=== PATIENT | female | born 1960 | race Caucasian/White ===

== ENCOUNTER → 2023-09-20 09:11 | Outpatient (BNVA) | payer MEDICARE, OTHER, SELFPAY | PROVIDERS: Visit Provider Physician Assistant Surgical ==

== ENCOUNTER 2023-11-20 08:06 | Outpatient (AMB) | payer OTHER, MEDICARE, SELFPAY ==
--- NOTE | 2023-11-20 09:53 | MHC.OFFVISWM ---
Intake Visit Reasons: TV Re-Est SWL BMI 43.5 *SEE COMMENTS* Allergies codeine Allergy (Mild, Verified 11/20/23 09:53) HIVES lisinopril Allergy (Mild, Verified 11/20/23 09:53) Hives Penicillins Allergy (Mild, Verified 11/20/23 09:53) Hives TOPICAL IODINE Allergy (Mild, Uncoded 11/20/23 09:53) Hives Medication List - Last Reconciled 11/20/23 by Rosalino Mendoza MD albuterol 90 mcg/actuation mcg inhalation cyanocobalamin (vitamin B-12) 1,000 mcg sublingual DAILY cyclobenzaprine 10 mg PO BEDTIME doxycycline hyclate 50 mg PO DAILY levothyroxine 50 mcg PO DAILY losartan-hydrochlorothiazide 100-25 mg 1 tab PO DAILY metformin ER 500 mg PO DAILY naproxen 500 mg PO BID semaglutide (Ozempic) 1 mg subcut QWEEK HPI HPI TV Re-Est SWL BMI 43.5 *SEE COMMENTS*: Details: Start time: 9.42am, End time: 10.27am ?I spent 40 minutes speaking with the patient on the phone plus an additional 5 minutes reviewing and updating records for a total of 45 minutes HPI Comments Details: Previous weight loss efforts: [employer], 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, OA, RD Wakes up: 7am, Sleeps: 10pm Breakfast: 8am (oatmeal) Lunch: 12.30pm (salad with eggs) Dinner: 6.30pm (chicken with kale, potatoes, rice and beans) Snacks: (nuts or fruit) x2 Exercise: has a home treadmill, rowing machine and bike Fluids: coffee: occasionally, hot/iced tea: 6 cups per day (creamer and milk), soda: none, juice: none, ETOH: none PFSH Medical History (Updated 04/06/22 @ 08:38 by Rosalino Mendoza MD) Migraines Insomnia Hypothyroidism Sleep apnea with use of continuous positive airway pressure (CPAP) Asthma Anxiety Depression DJD (degenerative joint disease) GERD (gastroesophageal reflux disease) Non-insulin dependent diabetes mellitus Hypertension Morbid obesity Surgical History (Updated 04/04/22 @ 10:00 by NOVA Tucker) History of wisdom tooth extraction Hx of rotator cuff surgery Hx of knee surgery History of bunionectomy Hx of endoscopy Hx of colonoscopy Family History (Updated 04/04/22 @ 10:02 by NOVA Tucker) Mother Diabetes Breast cancer Thyroid condition Diverticulitis Father Hypertension Brother Acute Crohn's disease Brother No problems noted. Sister Thyroid condition Social History (Updated 04/04/22 @ 09:56 by NOVA Tucker) Alcohol intake: current Alcohol intake frequency: holidays/special occasions only Patient Tobacco Use Status: Never used Tobacco Telehealth Telehealth Telehealth Platform: Telephone Location of provider rendering services: practice address Location of patient: address on file Patient Identification confirmed using: Name, : Yes Telehealth method: voice only Patient verbally consented to treatment: Yes Patient verbally consented to billing insurance company: Yes Patient informed of any privacy concerns related to visit: Yes Minutes spent on Phone/Video with Pt.: 45 Assessment & Plan Assessment & Plan (1) Morbid obesity: Code(s): E66.01 - Morbid (severe) obesity due to excess calories Category: Medical Plan: 1.? Plan for lap sleeve gastrectomy. If diaphragmatic or ventral hernias are present at time of surgery, these will be repaired laparoscopically as well. Risks and complications include possible conversion to an open procedure, anastomotic leak, bleeding requiring transfusion, small bowel obstruction, , DVT and pulmonary embolism, cardiac, or pulmonary complications, as [facility] complications such as anastomotic ulcer, insufficient weight loss and vitamin deficiencies. I emphasized the importance of close follow-up, adherence to instructions and good communication. 2. You will receive a link of our software mar to generate an individualized nutritional and exercise plan specific for you. Please send me a screenshot of the plans you will generate Meal to include lean meat (beef, fish, pork, turkey, chicken), or lithuanian yogurt, or egg whites, or beans with a salad with olive oil and fruits (berries, pears, apples, kiwi). Avoid salt, breads, potatoes, rice, pasta, desserts. ?3. If you choose shakes, each shake would be drunk slowly, like coffee in a period of 2 hours. ?4. If you choose bars, cut each bar in 4 pieces and eat each piece in 30min ?to make each bar last 2 hours. ?5. I emphasized the importance of measuring accurately the food portion and measure it when serving the food in plate ?6. The meal portions include a specific number of forks of meat and salad. You always eat the meat portion but you can replace up to half of salad/vegetables portion with rice, potatoes or pasta, or a fruit ?if you like. The less you do it the better weight loss will be. ?7. One full-size fork is what it can be scooped on the fork without falling aside and not what can be bit with the fork. Use regular forks like those you find in a typical restaurant. ?8.? Please send me weight measurements as soon as possible and then once a week. Always include your diet and exercise plan. 9. The best choice would be to purchase a stationary bike, elliptical or treadmill at home that can track calories. Let me know if you do so I can give you an exercise plan. ?10.?It is important of avoiding and for at least 18 months postoperatively and has been discussed at the infosession. ?11. Goal is to lose at least 1.5-2lbs per week ?12. Goal to lose 10% of your weight before surgery, which is about 24lbs. Ultimate weight goal: 213lbs before surgery 13. Please follow the diet plan exactly without any change. If you don't like something about the plan or you feel hungry you need to communicate with me so I can help you revise the plan. You should not change the plan yourself. 14. To be scheduled for EGD due to history of GERD. The possibility of biopsies was discussed. Patient needs to avoid use of NSAIDs and aspirin for 1 week prior to EGD. Risks of perforation and bleeding was discussed with the patient. This will be an outpatient procedure with IV sedation. Orders: Orders Hemoglobin A1c Today E66.01 - Morbid (severe) obesity due to excess calories H Pylori Breath Test Today E66.01 - Morbid (severe) obesity due to excess calories Complete Blood Count Auto Diff Today E66.01 - Morbid (severe) obesity due to excess calories IRON PROFILE Today E66.01 - Morbid (severe) obesity due to excess calories Comprehensive Met. Panel Today E66.01 - Morbid (severe) obesity due to excess calories Vitamin B12 and Folate Today E66.01 - Morbid (severe) obesity due to excess calories Zinc Today E66.01 - Morbid (severe) obesity due to excess calories C Reactive Protein Today E66.01 - Morbid (severe) obesity due to excess calories Vitamin A Today E66.01 - Morbid (severe) obesity due to excess calories TSH reflex Free T4 Today E66.01 - Morbid (severe) obesity due to excess calories Vitamin D 25-OH Total Today E66.01 - Morbid (severe) obesity due to excess calories US abdomen comp w elastography Today E66.01 - Morbid (severe) obesity due to excess calories XR chest 2V Today E66.01 - Morbid (severe) obesity due to excess calories ECG 12 lead EKG Today E66.01 - Morbid (severe) obesity due to excess calories Insulin Today E66.01 - Morbid (severe) obesity due to excess calories Lipid Panel Today E66.01 - Morbid (severe) obesity due to excess calories Vitamin B1 Today E66.01 - Morbid (severe) obesity due to excess calories Ferritin Today E66.01 - Morbid (severe) obesity due to excess calories FL upper GI w air Today E66.01 - Morbid (severe) obesity due to excess calories Referrals Behavioral Health Referral E66.01 - Morbid (severe) obesity due to excess calories Nutrition/Dietitian Referral E66.01 - Morbid (severe) obesity due to excess calories
== END 2023-11-20 10:28 | disposition home or self-care (01) ==
LOC: HO.HBS 08:06
PROVIDERS: Visit Provider Surgery
DX: E66.01 Morbid (severe) obesity due to excess calories (principal); Z68.41 Body mass index [BMI] 40.0-44.9, adult
CPT/HCPCS: 99443

== ENCOUNTER → 2023-11-20 08:06 | Outpatient (BNVA) | payer MEDICARE, OTHER, SELFPAY | PROVIDERS: Visit Provider Surgery ==

== ENCOUNTER 2023-12-20 09:36 | Outpatient (REF) | payer OTHER, MEDICARE, SELFPAY ==
--- NOTE | ~2023-12-20 | US_ITS ---
EXAMINATION: US COMPLETE ABDOMEN WITH LIVER ELASTOGRAPHY CLINICAL INFORMATION: Obesity. COMPARISON: None available. TECHNIQUE: Real-time imaging of the abdominal viscera. Noninvasive ultrasound liver fibrosis assessment is performed using Gricel ElastPQ point quantification shear wave elastography (pSWE) with a C5-2 MHz transducer. Multiple elastography samples are obtained. FINDINGS: PANCREAS: Normal. The visualized pancreatic head and body are normal in appearance. The remainder of the pancreas is obscured from visualization by the overlying bowel gas. ABDOMINAL AORTA: The proximal, middle, and distal aortic segments are normal in caliber. INFERIOR VENA CAVA: Visualized portions are normal. LIVER: The liver demonstrates normal contour and increased echogenicity. No focal lesion or intrahepatic biliary duct dilatation. The right lobe measures 19.1 cm in length. The left lobe measures 13.2 cm in length. Portal flow is towards the liver (hepatopetal). Shear wave liver elastography median stiffness is 1.40 m/s (reference: normal median stiffness is 1.3 m/s or less). IQR/median stiffness to assess sampling precision is 0.11 (reference: good quality data set is IQR/median stiffness of 0.15 or less). GALLBLADDER: Normal. The gallbladder is physiologically distended without evidence of stones, sludge, polyps, wall thickening or pericholecystic fluid. COMMON BILE DUCT: Normal in caliber measuring 0.4 cm in diameter. RIGHT KIDNEY: Normal. No hydronephrosis. No renal calculi or focal parenchymal lesions. The kidney measures 12.3 cm in maximum dimension. LEFT KIDNEY: Normal. No hydronephrosis. No renal calculi or focal parenchymal lesions. The kidney measures 11.2 cm in maximum dimension. SPLEEN: Normal. The spleen measures 10.2 cm in maximum dimension. FREE FLUID: None. US/US abdomen comp w elastography IMPRESSION: 1. There is generalized increase in hepatic echotexture, consistent with fatty infiltration or hepatocellular disease. Please correlate clinically. No focal hepatic mass or intrahepatic biliary dilatation is seen. 2. There is hepatomegaly. 3. Liver elastography: In the absence of other known clinical signs, measurements rule out compensated advanced chronic liver disease. If there are known clinical signs, further testing may be needed for confirmation. REFERENCE: Society of Radiologists in Ultrasound Liver Stiffness Thresholds (2020): LIVER STIFFNESS THRESHOLDS: *Liver Stiffness equal or less than 1.3 m/s: High probability of being normal. *Liver Stiffness less than 1.7 m/s: In the absence of other known clinical signs, rules out compensated advanced chronic liver disease. *Liver Stiffness 1.7-2.1 m/s: Suggestive of compensated advanced chronic liver disease but need further test for confirmation. *Liver Stiffness over 2.1 m/s: Rules in compensated advanced chronic liver disease. *Liver Stiffness over 2.4 m/s: Suggestive of clinically significant portal hypertension. QUALITY OF DATA SET: *IQR/Median value equal or less than 0.15 implies a quality data set. *IQR/Median value over 0.15 implies a poor quality data set. SIGNIFICANT CHANGE FROM PRIOR EXAM: Significant change if liver stiffness measurement is 10% or greater from prior exam. OTHER CONSIDERATIONS: The stage of liver fibrosis may be overestimated in the setting of acute hepatitis, liver inflammation, elevated liver function tests, hepatic vascular congestion, obstructive cholestasis, non-fasting state, and infiltrative diseases such as amyloidosis and lymphoma. In some patients with NAFLD, the liver stiffness thresholds for compensated advanced chronic liver disease may be lower. In causes other than viral hepatitis and NAFLD, liver stiffness thresholds are not well established. Electronically signed by: Elie Parra MD 01/15/2024 03:52 PM EDT
--- NOTE | ~2023-12-20 | XR_ITS ---
EXAMINATION: XR CHEST CLINICAL INFORMATION: Morbid severe obesity due to excess calories. COMPARISON: None available. TECHNIQUE: 2 views of the chest were obtained. FINDINGS: Lung volumes are low. Heart size is normal. Degenerative changes in the thoracic spine. No pleural effusion. Streaky bilateral perihilar and lower lung opacities are characteristic of atelectasis/scar, however, an infectious/inflammatory process should also be considered in the appropriate clinical setting. XR/XR chest 2V IMPRESSION: Streaky bilateral perihilar and lower lung opacities are characteristic of atelectasis/scar, however, an infectious/inflammatory process should also be considered in the appropriate clinical setting.
[2023-12-20 10:03] LABS: MANUAL DIFF FLAG NO
[2023-12-20 10:53] LABS: Basophils Percent Auto 0.5 % (0-2); Eosinophils Absolute Auto 0.1 X10*3/uL (0.0-0.4); Eosinophils Percent Auto 0.9 % (0-4); Hematocrit 38.7 % (37.0-47.0); Hemoglobin 12.8 g/dl (12.0-16.0); Imm Gran Abs Auto 0.05 X10*3/uL (0.00-0.03); Imm Gran Pct Auto 0.6 % (0.0-0.4); Lymphocytes Absolute Auto 1.7 X10*3/uL (1.2-4.9); Lymphocytes Percent Auto 21.5 % (20-40); Mean Corpuscular HGB Conc 33.1 g/dl (31.0-35.0); Mean Corpuscular Hemoglobin 28.1 pg (27.0-33.0); Mean Corpuscular Volume 84.9 fL (80.0-98.0); Mean Platelet Volume 10.4 fL (9.4-12.3); Monocytes Absolute Auto 0.9 X10*3/uL (0.1-1.2); Monocytes Percent Auto 11.3 % (2-11); Neutrophils Absolute Auto 5.1 x10*3/uL (2.0-8.3); Neutrophils Percent Auto 65.2 % (45-73); Platelet Count 266 X10*3/uL (160-400); Red Blood Count 4.56 X10*6/uL (4.20-5.50); Red Cell Distribution Width 14.5 % (11.0-16.0); White Blood Count 7.8 X10*3/uL (4.8-10.8)
[2023-12-20 11:03] LABS: Estimated Average Glucose 131 mg/dL; Hemoglobin A1C 149.8062 umol/L; Hemoglobin A1c % 6.2 % (<6.0)
[2023-12-20 11:36] LABS: Alanine Aminotransferase 57 U/L (0-31); Albumin Level 4.5 g/dL (3.5-5.0); Alkaline Phosphatase 58 U/L (39-117); Anion Gap 14 (12-20); Aspartate Amino Transferase 31 U/L (5-31); Bilirubin Total 0.3 mg/dL (0.0-1.0); Blood Urea Nitrogen 20 mg/dL (9-16); Calcium 10.3 mg/dL (8.4-10.2); Carbon Dioxide 24 mmol/L (22-29); Chloride 100 mmol/L (96-108); Cholesterol 179 mg/dL (<200); Estimated Glomerular Filt Rate > 60; Glucose Random 100 mg/dL (60-115); HDL Cholesterol 65 mg/dL (>40); Iron 65 mcg/dL (30-160); LDL Cholesterol Calculated 90 mg/dL (<100); Percent Iron Saturation 17 % (15-50); Potassium 3.9 mmol/L (3.3-5.1); Sodium 134 mmol/L (135-145); Total Iron Binding Capacity 386 mcg/dL (228-428); Total Protein 7.3 g/dL (6.5-8.0); Triglycerides 122 mg/dL (<150); Unsaturated Iron Binding 321 ug/dL
[2023-12-20 11:56] LABS: Ferritin 16 ng/mL (10-250); Insulin 23 uU/mL (2-29); TSH reflex Free T4 1.09 uIU/mL (0.32-4.0); Vitamin D 25-OH Total 21.6 ng/mL (>30)
[2023-12-20 12:05] LABS: Folate 9.4 ng/mL (> or = 4.0); Vitamin B12 330 pg/mL (200-900)
[2023-12-23 01:47] LABS: Zinc 63 mcg/dL (60-130)
[2023-12-24 11:38] LABS: Vitamin B1 6 nmol/L (8-30)
[2023-12-25 21:03] LABS: Vitamin A 74 mcg/dL (38-98)
== END 2023-12-20 09:37 | disposition home or self-care (01) ==
LOC: HO.US 09:36
PROVIDERS: Visit Provider Surgery
DX: E66.01 Morbid (severe) obesity due to excess calories (principal); Z13.1 Encounter for screening for diabetes mellitus
CPT/HCPCS: 36415; 71046; 76700; 76981; 80053; 80061; 82306; 82607; 82728; 82746; 83036; 83525; 83540; 84425; 84443; 84590; 84630; 85025; 86140

== ENCOUNTER 2024-01-03 14:13 | Outpatient (AMB) | payer OTHER, MEDICARE, SELFPAY ==
--- NOTE | 2024-01-03 14:04 | MHC.WMTHER ---
Intake Intake Visit Reasons: TV BH Intake Allergies codeine Allergy (Mild, Verified 11/20/23 09:53) HIVES lisinopril Allergy (Mild, Verified 11/20/23 09:53) Hives Penicillins Allergy (Mild, Verified 11/20/23 09:53) Hives TOPICAL IODINE Allergy (Mild, Uncoded 11/20/23 09:53) Hives [facility] Medical History (Updated 04/06/22 @ 08:38 by Rosalino Mendoza MD) Migraines Insomnia Hypothyroidism Sleep apnea with use of continuous positive airway pressure (CPAP) Asthma Anxiety Depression DJD (degenerative joint disease) GERD (gastroesophageal reflux disease) Non-insulin dependent diabetes mellitus Hypertension Morbid obesity Surgical History (Updated 04/04/22 @ 10:00 by NOVA Tucker) History of wisdom tooth extraction Hx of rotator cuff surgery Hx of knee surgery History of bunionectomy Hx of endoscopy Hx of colonoscopy Family History (Updated 04/04/22 @ 10:02 by NOVA Tucker) Mother Diabetes Breast cancer Thyroid condition Diverticulitis Father Hypertension Brother Acute Crohn's disease Brother No problems noted. Sister Thyroid condition Social History (Updated 04/04/22 @ 09:56 by NOVA Tucker) Alcohol intake: current Alcohol intake frequency: holidays/special occasions only Patient Tobacco Use Status: Never used Tobacco Behavioral Health Assessment Weight Management Therapy Therapy Notes Details Pt is a 63 years old, who presents for initial behavioral health assessment as part of surgical weight-loss program. Presenting Concerns Referral Source [facility] provider. PT sees Dr. Cedillo Reason for referral Completion of behavioral health assessment as part of process for weight-loss surgery. Precipitating Event PT needs knee surgery but is unable to get it until she loses some weight, so after that, she realizes she needs to do something serious to be and feel healthier. She feels tired of not feeling good. Living Situation Current Living Situation Own At risk of losing current housing? No Satisfied with current living situation? Yes Comments PT lives with her spouse, Lakshmi, their 2 daughters who are 25 y/o and 18 y/o and their 2 dogs. Food/Weight/Diet Expectations of change The initial goal is to lose 10% of her weight before surgery, which is about 24 lbs. Ultimate weight goal: 213lbs before surgery Start weight: 243Lbs Target weight: 139 lbs. Meal plan: 2 bars, 2 meals (lunch/dinner). PT reports she is following most of the time but, on days she works she is hungry and feels she needs more food; other days she craves some sweets or carbs. Social History Family history and relationship PT is and has 2 adopted daughters. They don't have family in the area. PT grew up in [place] and her partner in [facility]. 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 Developmental history and status None reported. Social support Spouse. Community support Volunteers, group of people with whom she does aquarobics every week. Church/Spirituality G[facility] up [facility]. 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 Cultural/Ethnic information . Legal Involvement and History Current or historical involvement with the legal system? None reported. Education Highest grade completed Bachelors degree Preferred learning style Auditory, Verbal, Written, Learn by doing and Visual Currently enrolled in educational program? No Interested in further educational program? 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 Haven't worked since her company closed during .) Wants help to find employment? No Meaningful activities Read, knit and sew, cooking, watch independent films, write, listen and make to music. Financial Situation Describe current financial situation Comfortable Financial assistance? None Service Service? No Mental Health and Addiction Treatment Current/Past substance abuse? No Comments Used Edibles for sleep in the past. Current/Past addictive behavior concerns? No Psychiatric history PT has a therapist who sees her every month. PT reports she has a history of depression/anxiety, however is stable doesn't have any active symptoms. She mainly sees her therapist for support due to the multiple transitions they're going trough Denies ever been in crisis, hospitalized, or any concerns around self/other-harm. Medical and Physical Health Summary Additional Medical History not covered in history Fibromyalgia. Sexual History concerns None reported. Physical exam in the last year? Yes Pain Screening Current pain? Yes Pain in the last few months? Yes Comments Pain is daily, related to fibromialgya, neuropathy and joint disease. She also struggles with knee and shoulder pain. Pain gets worse after workouts. Medications Is the patient compliant with medications? Yes Does the patient have Whitman Guardian in place? Not applicable Assessment & Plan Assessment & Plan (1) Adjustment disorder: Code(s): F43.20 - Adjustment disorder, unspecified Qualifiers: Adjustment disorder type: unspecified type Qualified Code(s): F43.20 - Adjustment disorder, unspecified Plan PT not cleared today and needs to be seen again to finish assessment. BES and PHQ-9 needs to be completed as PT is reestablishing care and scores on file are from 2021. Next mar 01/18/2024 at 9am - via telehealth. Telehealth Telehealth Telehealth Platform: [employer] Location of provider rendering services: other (Home office. [place], [place]) Location of patient: address on file Patient Identification confirmed using: Name, : Yes Telehealth method: video Patient verbally consented to treatment: Yes Patient verbally consented to billing insurance company: Yes Patient informed of any privacy concerns related to visit: No Minutes spent on Phone/Video with Pt.: 60 Coding Level of Care Code New Pt Tele Psy Justin Leiva ([id number]) Patient Type New Diagnoses Adjustment disorder, unspecified type F43.20 Adjustment disorder type: unspecified type Time Spent (min) 60 Comment 2:00-3:00
== END 2024-01-03 15:09 | disposition home or self-care (01) ==
LOC: HO.HBST 14:13
PROVIDERS: Visit Provider Counselor Mental Health
DX: F43.20 Adjustment disorder, unspecified (principal)
CPT/HCPCS: 90791

== ENCOUNTER → 2024-01-03 14:13 | Outpatient (BNVA) | payer OTHER, MEDICARE, SELFPAY | PROVIDERS: Visit Provider Counselor Mental Health ==

== ENCOUNTER → 2024-01-18 09:13 | Outpatient (BNVA) | payer OTHER, MEDICARE, SELFPAY | PROVIDERS: Visit Provider Counselor Mental Health ==

== ENCOUNTER → 2024-01-18 09:13 | Outpatient (AMB) | payer OTHER, MEDICARE, SELFPAY ==
--- NOTE | 2024-01-18 09:15 | MHC.WMTHER ---
Intake Intake Visit Reasons: VIDEO Intake Part 2 Allergies codeine Allergy (Mild, Verified 11/20/23 09:53) HIVES lisinopril Allergy (Mild, Verified 11/20/23 09:53) Hives Penicillins Allergy (Mild, Verified 11/20/23 09:53) Hives TOPICAL IODINE Allergy (Mild, Uncoded 11/20/23 09:53) Hives [facility] Medical History (Updated 01/12/24 @ 21:48 by Rosalino Mendoza MD) Migraines Insomnia Hypothyroidism Sleep apnea with use of continuous positive airway pressure (CPAP) Asthma Anxiety Depression DJD (degenerative joint disease) GERD (gastroesophageal reflux disease) Non-insulin dependent diabetes mellitus Hypertension Morbid obesity Surgical History (Updated 04/04/22 @ 10:00 by NOVA Tucker) History of wisdom tooth extraction Hx of rotator cuff surgery Hx of knee surgery History of bunionectomy Hx of endoscopy Hx of colonoscopy Family History (Updated 04/04/22 @ 10:02 by NOVA Tucker) Mother Diabetes Breast cancer Thyroid condition Diverticulitis Father Hypertension Brother Acute Crohn's disease Brother No problems noted. Sister Thyroid condition Social History (Updated 04/04/22 @ 09:56 by NOVA Tucker) Alcohol intake: current Alcohol intake frequency: holidays/special occasions only Patient Tobacco Use Status: Never used Tobacco Behavioral Health Assessment Weight Management Therapy Therapy Notes Details Pt is a 63 years old, who presents for a second visit to complete behavioral health assessment as part of surgical weight-loss program. PT reports interest in weight-loss surgery as a long-term solution for her obesity. She has been struggled the past years to lose weight due to multiple health issues impacting activity levels. PT reports she has a history of depression/anxiety, however is stable and doesn't have any active symptoms. She mainly sees her therapist for support due to the multiple transitions they're going trough on a monthly basis. PT Denies ever been in crisis, hospitalized, or any concerns around self/other-harm. There is no history of addictions and/or safety concerns and mental status exam is within normal limits, suggesting person's functioning is not impaired. At this time patient is cleared from the behavioral health standpoint. Presenting Concerns Referral Source WMP provider. PT sees Dr. Cedillo Reason for referral Completion of behavioral health assessment as part of process for weight-loss surgery. Precipitating Event PT needs knee surgery but is unable to get it until she loses some weight, so after that, she realizes she needs to do something serious to be and feel healthier. She feels tired of not feeling good. Living Situation Current Living Situation Own At risk of losing current housing? No Satisfied with current living situation? Yes Comments PT lives with her spouse, Lakshmi, their 2 daughters who are 25 y/o and 18 y/o and their 2 dogs. Food/Weight/Diet Expectations of change The initial goal is to lose 10% of her weight before surgery, which is about 24 lbs. Ultimate weight goal: 213lbs before surgery Start weight: 243Lbs Target weight: 139 lbs. Meal plan: 2 bars, 2 meals (lunch/dinner). PT reports she is following most of the time but, on days she works she is hungry and feels she needs more food; other days she craves some sweets or carbs. History/Relationship with food PT stress she has used food as source of comfort and when bored. She has also noticed that when have high pain and/or feel tired she tends to crave for sugar. She loves fruits and eats them all during the day. Example of meals before starting the program: Breakfast: 2 slides of bread with almond butter and a banana, a latte Lunch: a sandwich or a salad with sliced turkey or tuna and a serving of fruit. Dinner: brown rice, tofu, veggie stir mcdonough Snacks: fruit during the day. Evenings: ice-cream, chips, raisings, almonds, granola with yogurt. Drinks/Liquids: 4-6 cups of black tea, sparkling water, no juice or soda. History/Relationship with weight PT reports she gains about 25Lbs during the covid-pandemic, now she is down to her pre-pandemic weight. [id number] she gained 30Lbs. She believes she was consistently gaining 10Lbs at year after she started a family. She was at a healthy weight before having kids. In the last 10 years, the patient's Lowest weight was 170Lbs and 245Lbs the highest History/Relationship with dieting weight watchers, lean cuisine, noon, outdoor fitness trainer, exercise and diet. macrobiotic diet. Social History Family history and relationship PT is and has 2 adopted daughters. They don't have family in the area. PT grew up in [place] and her partner in [facility]. 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 Developmental history and status None reported. Social support Spouse. Community support Volunteers, group of people with whom she does aquarobics every week. Church/Spirituality Grew up [facility]. 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 Cultural/Ethnic information . Legal Involvement and History Current or historical involvement with the legal system? None reported. Education Highest grade completed Bachelors degree Preferred learning style Auditory, Verbal, Written, Learn by doing and Visual Currently enrolled in educational program? No Interested in further educational program? 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 Haven't worked since her company closed during .) Wants help to find employment? No Meaningful activities Read, knit and sew, cooking, watch independent films, write, listen and make to music. Financial Situation Describe current financial situation Comfortable Financial assistance? None Service Service? No Mental Health and Addiction Treatment Current/Past substance abuse? No Comments Used Edibles for sleep in the past. Alcohol: once a month or less. Non-smoker. Current/Past addictive behavior concerns? No Psychiatric history PT has a therapist who sees her every month. PT reports she has a history of depression/anxiety, however is stable doesn't have any active symptoms. She mainly sees her therapist for support due to the multiple transitions they're going trough Denies ever been in crisis, hospitalized, or any concerns around self/other-harm. Medical and Physical Health Summary Additional Medical History not covered in history Fibromyalgia. Sexual History concerns None reported. Physical exam in the last year? Yes Pain Screening Current pain? Yes Pain in the last few months? Yes Comments Pain is daily, related to fibromialgya, neuropathy and joint disease. She also struggles with knee and shoulder pain. Pain gets worse after workouts. Medications Is the patient compliant with medications? Yes Does the patient have Whitman Guardian in place? Not applicable Questionnaires Binge Eating Scale Group 1 A. I don't feel self-conscious about my wt. or body size when I'm with others. B. I feel concerned about how I look to others, but it normally does not make me fell disappointed with myself C. I do get self-conscious about my appearance and wt. which makes me feel disappointed in myself. D. I feel very self-conscious about my wt. and frequently I feel intense shame and disgust for myself. I try to avoid social contacts because of my self-consciousness. Response Group 1: D Group 2 A. I don't have any difficulty eating slowly in the proper manner. B. Although I seem to gobble down foods, I don't end up feeling stuffed because of eating to much. C. At times, I tend to eat quickly and then, I feel uncomfortably full afterwards. D. I have the habit of bolting down my food, without really chewing it. When this happens I usually feel uncomfortably stuffed because I've eaten to much. Response Group 2: C Group 3 A. I feel capable to control my eating urges when I want to. B. I feel like I have failed to control my eating more than the average person. C. I feel utterly helpless when it comes to feeling in control of my eating urges. D. Because I feel so helpless about controlling my eating I have become very desperate about trying to get control. Response Group 3: B Group 4 A. I don't have the habit of eating when I'm bored. B. I sometimes eat when I'm bored, but often I'm able to get busy and get my mind off food. C. I have a regular habit of eating when I'm bored, but occasionally, I can use some other activity to get my mind off eating. D. I have a strong habit of eating when I'm bored. Nothing seems to help me breath the habit. Response Group 4: C Group 5 A. I'm usually physically hungry when I eat something. B. Occasionally, I eat something on impulse even though I really am not hungry. C. I have the regular habit of eating foods, that I might not really enjoy, to satisfy a hungry feeling even though physically, I don't need the food. D. Although I'm not physically hungry, I get a hungry feeling in my mouth that only seems to be satisfied when I eat a food, like sandwich, that fills my mouth. Sometimes, when I eat the food to satisfy my mouth hunger, I then spit the food out so I won't gain weight. Response Group 5: B Group 6 A. I don't feel any guilt or self-hate after I overeat. B. After I overeat, occasionally I feel guilt or self-hate. C. Almost all the time I experience strong guilt or self-hate after I overeat. Response Group 6: B Group 7 A. I don't lose total control of my eating when dieting even after periods when I overeat. B. Sometimes when I eat a forbidden food on a diet, I feel like I blew it and eat even more. C. Frequently, I have the habit of saying to myself, I've blown it now, why not go all the way, when I overeat on a diet. When that happens I eat more. D. I have a regular habit of starting a strict diets for myself but I break the diets by going on an eating binge. My life seems to be either a feast or famine. Response Group 7: B Group 8 A. I rarely eat so much food that I feel uncomfortably stuffed afterwards. B. Usually about once a month, I each such a quantity of food, I end up feeling very stuffed. C. I have regular periods during the month when I eat large amounts of food, either at mealtime or at snacks. D. I eat so much food that I regularly feel quite uncomfortable after eating and sometimes a bit nauseous. Response Group 8: B Group 9 A. My level of calorie intake does not go up very high or go down very low on a regular basis. B. Sometimes after I overeat, I will try to reduce my caloric intake to almost nothing to compensate for the excess calories I've eaten. C. I have a regular habit of overeating during the night. It seems that my routine is not to be hungry in the morning but overeat in the evening. D. In my adult years, I have had week-long periods where I practically starve myself. This follows periods when I overeat. It seems I live a life of either feast or famine. Response Group 9: C Group 10 A. I usually am able to stop eating when I want to. I know when enough is enough. B. Every so often, I experience a compulsion to eat which I can't seem to control. C. Frequently, I experience strong urges to eat which I seem unable to control, but at other times I can control my eating urges. D. I feel incapable of controlling urges to eat. I have a fear of not being able to stop eating voluntarily. Response Group 10: C Group 11 A. I don't have any problem stopping eating when I feel full. B. I usually can stop eating when I feel full but occasionally overeat leaving me feeling uncomfortably stuffed. C. I have a problem stopping eating once I start and usually I feel uncomfortably stuffed after I eat a meal. D. Because I have a problem not being able to stop eating when I want, I sometimes have to induce vomiting to relieve my stuffed feeling. Response Group 11: B Group 12 A. I seem to eat just as much when I'm with others, Family social gatherings as when I'm by myself. B. Sometimes, when I'm with other persons, I don't eat as much as I want to eat because I'm self-conscious about my eating. C. Frequently, I eat only a small amount of food when others are present, because I'm very embarrassed about my eating. D. I feel so ashamed about overeating that I pick times to overeat when I know no one will see me. I feel like a closet eater. Response Group 12: A Group 13 A. I eat three meals a day with only an occasional between meal snack. B. I eat 3 meals a day, but I also normally snack between meals. C. When I am snacking heavily, I get in the habit of skipping regular meals. D. There are regular periods when I seem to be continually eating, with no planned meals. Response Group 13: A Group 14 A. I don't think much about trying to control unwanted eating urges. B. At least some of the time, I feel my thoughts are pre-occupied with trying to control my eating urges. C. I feel that frequently I spend much time thinking about how much I ate or about trying not to eat anymore. D. It seems to me that most of my waking hours are pre-occupied by thoughts about eating or not eating. I feel like I'm constantly struggling not to eat. Response Group 14: B Group 15 A. I don't think about food a great deal. B. I have strong craving for food but they last only for brief periods of time. C. I have days when I can't seem to think about anything else but food. D. Most of my days seem to be pre-occupied with thoughts about food. I feel like I live to eat. Response Group 15: C Group 16 A. I usually know whether or not I'm physically hungry. I take the right portion of food to satisfy me. B. Occasionally, I feel uncertain about knowing whether or not I'm physically hungry. A these times it's hard to know how much food I should take to satisfy me. C. Even though I might know how many calories I should eat, I don't have any idea what is a normal amount of food for me. Response Group 16: C Binge Eating Score: 22 Score less than 17 Minimal Risk Score between 18-26 Moderate Risk Score between 27-46 High Risk Assessment & Plan Assessment & Plan (1) Adjustment disorder: Code(s): F43.20 - Adjustment disorder, unspecified Plan: PT has been cleared from Bh standpoint. She will be seen again for support with habit building and learning effective coping strategies to deal with cravings and situations around her relationship with food. Next mar: 02/15 at 9am. Telehealth [facility]health [facility] Location of provider rendering services: other (Home office. [place], [place]) Location of patient: address on file Patient Identification confirmed using: Name, : Yes Telehealth method: video Patient verbally consented to treatment: Yes Patient verbally consented to billing insurance company: Yes Patient informed of any privacy concerns related to visit: No Minutes spent on Phone/Video with Pt.: 60 Coding Level of Care Code Established Pt Tele Psytx >53 mins ([id number]) Patient Type Established Diagnoses Adjustment disorder F43.20 Time Spent (min) 60
== END ==
LOC: HO.HBST 09:13
PROVIDERS: Visit Provider Counselor Mental Health
DX: F43.20 Adjustment disorder, unspecified (principal)
CPT/HCPCS: 90837